=== PATIENT | female | born 1995 | race Hispanic/Latino ===

== ENCOUNTER 2017-08-28 08:41 | Outpatient (CLI) | payer OTHER ==
--- NOTE | 2017-08-28 11:07 | ULT ---
GALLBLADDER ULTRASOUND: HISTORY: A 22-year-old female with abdominal pain. FINDINGS: Multiple gallstones are noted within a minimally contracted gallbladder without overt gallbladder wa ll thickening or pericholecystic fluid. Common bile duct 0.3 cm. Visualized liver, pancreas, and r ight kidney are unremarkable. IMPRESSION: Multiple cholelithiasis with a somewhat contracted gallbladder without overt gallbladder wall thicke jacobo, pericholecystic fluid, or ductal dilatation. POS: C
== END 2017-08-28 08:42 | disposition home or self-care (01) ==
LOC: ULT 08:41
PROVIDERS: ATTEND Family Medicine
DX: K80.20 Calculus of gallbladder without cholecystitis without obstruction (principal)
CPT/HCPCS: 76705

== ENCOUNTER 2017-12-15 05:47 | Day surgery (SDC) | payer OTHER ==
[2017-12-14 12:26] VITALS: BMI 27.8
[2017-12-15 07:40] LABS: #Basophils 0.1 thou/uL (0.0-0.2); #Eosinphils 0.1 thou/uL (0.0-0.7); #Lymphocytes 2.5 thou/uL (1.20-3.40); #Monocytes 0.6 thou/uL (0.11-0.59); #Neutrophils 4.7 thou/uL (1.40-6.50); %Basophils 1.1 % (0.0-1.0); %Eosinophils 1.1 % (0.0-10.0); %Lymphocytes 30.9 % (21.0-51.0); %Monocytes 7.6 % (0.0-10.0); %Neutrophils 59.3 % (42.0-75.0); Hemoglobin 13.9 g/dL (12.0-16.0); Mean Corpuscular HGB CONC 32.8 g/dL (32.0-36.0); Mean Corpuscular Hemoglobin 30.9 pg (27.0-31.0); Mean Corpuscular Volume 94.2 fl (81.0-99.0); Mean Platelet Volume 7.5 fL (7.4-10.4); Platelet Count 300 thou/uL (130-400); RBC Distribution Width 11.3 % (11.5-14.5); Red Blood Cell (RBC) Count 4.51 mill/uL (4.20-5.40)
[2017-12-15 07:51] LABS: BHCG - Serum Negative (NEGATIVE); Pregs Control Background? CLEAR/WHITE (CLR/WHITE); Pregs Control Bar Appear? YES (CONTROL BAR)
[2017-12-15 08:03] LABS: ALT (SGPT) 9 U/L (8-55); AST (SGOT) 15 U/L (5-34); Albumin 4.5 g/dL (3.5-5.0); Alkaline Phosphatase 62 U/L (40-150); Anion Gap 11 mmol/L (10-20); BUN (Urea Nitrogen) 10 mg/dL (7.0-18.7); Bilirubin, Total 0.7 mg/dL (0.2-1.2); Calc. Creatinine Clearance 128 mL/min (70-130); Calcium 9.8 mg/dL (7.8-10.44); Carbon Dioxide 23 mmol/L (22-29); Chloride 106 mmol/L (98-107); Estimated GFR-MDRD 90; Globulin 3.5 g/dL (2.4-3.5); Glucose 87 mg/dL (70-105); Potassium 3.5 mmol/L (3.5-5.1); Sodium 136 mmol/L (136-145)
[2017-12-15] MEDS ORDERED: Dexamethasone 20 MG/5 ML VIAL ONE (08:41)
[2017-12-15] MEDS ORDERED: Lidocaine 1% PF 5 ML VIAL ONE (08:41)
[2017-12-15] MEDS ORDERED: Ketorolac Tromethamine 30 MG/ML VIAL ONE (08:41)
[2017-12-15] MEDS ORDERED: Ondansetron HCl/PF 4 MG/2 ML Vial ONE (08:41)
[2017-12-15] MEDS ORDERED: PROPOFOL 200 MG/20 ML VIAL ONE (08:41)
[2017-12-15] MEDS ORDERED: Glycopyrrolate 0.2 MG/ML 5 ML SYRINGE ONE (08:41)
[2017-12-15] MEDS ORDERED: Bupivacaine/Epinephrine 0.25% 30 ML VIAL ONE (08:42)
[2017-12-15] MEDS ORDERED: Midazolam HCl 2 mg/2 ml Vial ONE (09:11)
[2017-12-15] MEDS ORDERED: CEFAZOLIN/Water 2 GM/20 ML SYRINGE ONE (09:11)
[2017-12-15] MEDS ORDERED: HYDROmorphone 0.5 MG/0.5 ML SYRINGE ONE (09:29)
[2017-12-15] MEDS ORDERED: Fentanyl 250 MCG/5 ML VIAL ONE (09:29)
[2017-12-15] MEDS ORDERED: Promethazine HCl 25 MG/ML VIAL ONE (09:31)
--- NOTE | 2017-12-18 15:05 | OP ---
DATE OF PROCEDURE: 12/15/2017 PROCEDURE: Laparoscopic cholecystectomy. PREOPERATIVE DIAGNOSIS: Symptomatic cholelithiasis. POSTOPERATIVE DIAGNOSIS: Symptomatic cholelithiasis. HISTORY: Ms. Morton is a 22-year-old woman with epigastric pain and nausea for the past 7 months. Gallbladder ultrasound showed gallstones. Preoperative LFTs were normal. Recommendation was made to proceed with laparoscopic cholecystectomy for symptomatic relief. PROCEDURE IN DETAIL: After informed consent was obtained and appropriate preoperative antibiotics administered, the patient was taken to the operating room where she was placed in supine position and general endotracheal anesthesia was administered. She was prepped and draped in a standard sterile fashion and local anesthesia was infused to the skin and subcutaneous tissues at the level of the umbilicus. A transverse skin incision was made. The fascia was elevated and a Veress needle placed into the abdominal cavity. Carbon dioxide gas was insufflated to an intra-abdominal pressure of 15 and the Veress needle withdrawn. A Teresita port was advanced into the abdominal cavity, which was carefully examined. There was no evidence of Veress needle or of trocar injury. Local anesthesia was infused to the skin and subcutaneous tissues at the epigastric, right upper quadrant, and right lateral abdominal sites. Skin incisions were made and trocars were placed under direct vision at those sites. The fundus of the gallbladder was identified, grasped, and retracted superiorly. The infundibulum was identified, grasped, and retracted laterally. The serosa was stripped inferiorly revealing a large stone impacted in the neck of the gallbladder. Cystic duct and artery were dissected free and clearly traced to their insertion in the gallbladder and a critical view of safety obtained. The cystic duct and artery were clipped and divided between clips. Gallbladder was then dissected free of the gallbladder bed using hook electrocautery. Prior to complete removal of the gallbladder from the gallbladder bed, the cystic duct and artery stumps were examined. The clips were in good position completely occluding these structures and there was no bleeding and no leakage of bile. The gallbladder was then completely removed from the gallbladder bed, placed into an EndoCatch bag and drawn out through the epigastric incision after crushing and removing a large stone in the neck of the gallbladder. The epigastric trocar was then replaced and the operative site easily irrigated to clear. Hemostasis was again verified. The epigastric trocar was removed and the fascia closed under direct laparoscopic vision with a 0 Vicryl suture on a GraNee needle with excellent technical result. The right upper quadrant and right lateral trocars were removed and hemostasis was verified. Carbon dioxide gas was allowed to desufflate through the umbilical trocar, which was then removed. Skin incisions were closed with 4-0 subcuticular Monocryl sutures and Dermabond dressings were placed. Estimated blood loss was minimal. There were no complications. SPECIMEN: Gallbladder and contents. MARIA DEL CARMEN
== END 2017-12-15 12:55 ==
LOC: SDC 05:47
PROVIDERS: ATTEND Surgery
PROC: 0FT44ZZ Resection of Gallbladder, Percutaneous Endoscopic Approach (ICD-10-PCS; principal; 2017-12-15)
DX: K80.10 Calculus of gallbladder with chronic cholecystitis without obstruction (principal)
CPT/HCPCS: 36415; 80053; 84703; 85025; 88304; J1100; J1170; J1885; J2001; J2250; J2405; J2550; J2704; J3010